=== PATIENT | female | born 1985 | race Caucasian/White ===

== ENCOUNTER → 2016-10-16 | Emergency (ER) | payer OTHER ==
[~2016-10-16] MED LIST: Fentanyl 100 MCG/2 ML VIAL ONE; Ondansetron HCl/PF 4 MG/2 ML Vial ONE
== END ==
LOC: BURERS 02:01
DX: O99.353 Diseases of the nervous system complicating pregnancy, third trimester (principal); G43.909 Migraine, unspecified, not intractable, without status migrainosus; O99.343 Other mental disorders complicating pregnancy, third trimester; F41.9 Anxiety disorder, unspecified
CPT/HCPCS: 96361; 96374; 96375; J2405; J3010

== ENCOUNTER 2016-11-11 16:34 | Emergency (ER) | payer OTHER ==
[~2016-11-11 16:34] MED LIST changes: -Fentanyl 100 MCG/2 ML VIAL ONE; +Iopamidol 370 76% 100 ML VIAL ONE; -Ondansetron HCl/PF 4 MG/2 ML Vial ONE
[2016-11-11 16:59] LABS: #Basophils 0.1 thou/uL (0.0-0.2); #Eosinphils 0.2 thou/uL (0.0-0.7); #Lymphocytes 1.9 thou/uL (1.20-3.40); #Monocytes 0.6 thou/uL (0.11-0.59); #Neutrophils 5.7 thou/uL (1.40-6.50); %Basophils 1.3 % (0.0-1.0); %Eosinophils 2.4 % (0.0-10.0); %Lymphocytes 22.5 % (21.0-51.0); %Monocytes 6.8 % (0.0-10.0); Hemoglobin 11.8 g/dL (12.0-16.0); Mean Corpuscular HGB CONC 32.3 g/dL (32.0-36.0); Mean Corpuscular Hemoglobin 27.4 pg (27.0-31.0); Mean Corpuscular Volume 85.1 fl (81.0-99.0); Mean Platelet Volume 9.1 fL (7.4-10.4); Platelet Count 230 thou/uL (130-400); RBC Distribution Width 12.1 % (11.5-14.5); Red Blood Cell (RBC) Count 4.28 mill/uL (4.20-5.40); White Blood Cell (WBC) Count 8.5 thou/uL (4.8-10.8)
[2016-11-11 17:14] LABS: ALT (SGPT) 10 U/L (8-55); AST (SGOT) 12 U/L (5-34); Albumin 3.9 g/dL (3.5-5.0); Alkaline Phosphatase 107 U/L (40-150); Anion Gap 13 mmol/L (10-20); BUN (Urea Nitrogen) 10 mg/dL (7.0-18.7); Bilirubin, Total 0.4 mg/dL (0.2-1.2); Calc. Creatinine Clearance 0 mL/min (70-130); Calcium 8.9 mg/dL (7.8-10.44); Carbon Dioxide 27 mmol/L (22-29); Chloride 105 mmol/L (98-107); Estimated GFR-MDRD 75; Globulin 3.2 g/dL (2.4-3.5); Glucose 96 mg/dL (70-105); Potassium 4.2 mmol/L (3.5-5.1); Protein, Total 7.1 g/dL (6.0-8.3); Sodium 141 mmol/L (136-145)
[2016-11-11 17:21] LABS: Bilirubin Negative (Negative); Blood, Urine Negative (Negative); Clarity Clear (Clear); Glucose, Urine (Dipstick) Negative (Negative); Leukocyte Trace (Negative); Nitrite Negative (Negative); Protein, Urine (Dipstick) Negative (Neg-Trace); Specific Gravity, Urine 1.015 (1.005-1.030); Urobilinogen 0.2 mg/dL (0.2-1.0)
[2016-11-11 17:29] LABS: Bacteria/HPF None Seen HPF (None Seen); Crystals/HPF None Seen HPF (Negative); Hyaline Casts/LPF NONE SEEN LPF (0-3 Hyaline); Other Casts/LPF None Seen LPF (0-3 Hyaline); Oval Fat Bodies/HPF None Seen HPF (None Seen); RBC/HPF None Seen HPF (0-3); Renal Epithelial None Seen HPF (0-3); Sperm/HPF None Seen HPF (None Seen); Squamous Epithelial None Seen HPF (0-3); Transitional Epithelial NONE SEEN HPF (0-3); Trichomonas/HPF None Seen HPF (None Seen); WBC/HPF 0-3 HPF (0-3); Yeast-All Forms None Seen HPF (None Seen)
[2016-11-11] MEDS ORDERED: Amoxicillin/Potassium Clav 875 MG TAB ONE (19:42)
--- NOTE | 2016-11-12 07:31 | CT ---
PRELIMINARY REPORT/[facility]/EMERGENCY AFTER HOURS PROCEDURE: EXAM: CT Abdomen and Pelvis With Intravenous Contrast CLINICAL HISTORY: 31 years old, female; Signs and symptoms; Fever; Prior surgery; Surgery date: <1 month; Surgery type : C section; Additional info: on october 26, 2016. Fever. Not , denies trouble with incision site. 101 temp today/ er/ no prev. TECHNIQUE: Axial computed tomography images of the abdomen and pelvis with intravenous contrast. COMPARISON: No relevant prior studies available. FINDINGS: Lower thorax: No acute findings. ABDOMEN: Liver: The liver is mildly enlarged. Gallbladder and bile ducts: Unremarkable. No calcified stones. No ductal dilation. Pancreas: Unremarkable. No mass. No ductal dilation. Spleen: Unremarkable. No splenomegaly. Adrenals: Unremarkable. No mass. Kidneys and ureters: Unremarkable. No solid mass. No hydronephrosis. Stomach and bowel: Liquefied stool contents are noted within the ascending colon, without associated colonic wall thickening or pericolonic fat stranding. No obstruction. Appendix: No findings to suggest acute appendicitis. PELVIS: Bladder: Unremarkable. No mass. Reproductive: There is mild stranding of the anterior pelvic fat, which could represent residual pos toperative changes related to the patient's recent section. The uterus is mildly prominent in size, compatible with the patient's recent state. The endometrial stripe is mildly prominent, which is not well evaluated by CT. No gas is identified within the endometrium. The surrounding myometrium is noted to be heterogeneous, with a well defined low attenuation areas. ABDOMEN and PELVIS: Intraperitoneal space: Trace pelvic free fluid is present. Bones/joints: No acute fracture. No dislocation. Soft tissues: A tiny fat filled periumbilical hernia is noted. Vasculature: Unremarkable. No abdominal aortic aneurysm. Lymph nodes: Unremarkable. No enlarged lymph nodes. IMPRESSION: 1. Mild stranding of the anterior pelvic fat may represent residual postoperative changes related to the patient's recent section. 2. Prominent endometrial stripe, not well evaluated by CT. Heterogeneity of the adjacent myometrium. No evidence of uterine or endometrial gas. Endometritis is possible, but cannot be confirmed or exc luded on the basis of this examination. 3. Mild hepatomegaly. Thank you for allowing us to participate in the care of your patient. Dictated and Authenticated by: Buddy Harvey MD 11/11/2016 6:58 PM Central Time ([place] \T\ [place]) FINAL REPORT CT ABDOMEN AND PELVIS WITH CONTRAST: Date: 11/11/[address] of the abdomen and pelvis was performed in this patient with fevers. There was a history o f a done about 2 weeks ago. Axial slices were acquired after giving IV contrast. No oral c ontrast was given by request. FINDINGS: The lungs are clear except for some minimal basilar atelectasis posteriorly. The liver is generous i n size, but internally appears normal. Spleen is upper normal in size, measuring just under 14.0 cm in length. The pancreas and gallbladder were unremarkable. The kidneys and adrenal glands appear nor mal. The aorta is normal in caliber. There is a moderate amount of fecal material in bowel, but there is no bowel distention, bowel wall thickening, or pericolonic stranding. No free air or free fluid was seen. CT of the pelvis shows the uterus to be mildly prominent in size, consistent with being recently pos tpartum. The endometrium seems somewhat prominent in thickness and there is some lucency in the myom etrium, particularly anterior to the endometrium. This could be referable to the recent , b ut hematoma or fluid collection in the uterus is not excluded. Ultrasound would be much more sensiti ve at assessing this. Some slight stranding in the fat anterior to the uterus is probably related to the recent surgery. There are no adnexal masses or free fluid seen. IMPRESSION: 1. Prominent thickness of the endometrial stripe, which may have fluid within it. There is also inh omogeneity of the myometrium with some more focal low density areas. Endometritis would be in the di fferential. A pelvic ultrasound should be considered to better investigate the uterus. 2. Mildly prominent hepatic and splenic size. 3. Mild constipation. REPORT IN AGREEMENT WITH PRELIMINARY REPORT BY OLGA LIDIA. POS: HOME
== END 2016-11-11 19:45 | disposition home or self-care (01) ==
LOC: BURERS 16:34
DX: O99.89 Other specified diseases and conditions complicating pregnancy, childbirth and the puerperium (principal); R10.2 Pelvic and perineal pain; M06.9 Rheumatoid arthritis, unspecified; O99.355 Diseases of the nervous system complicating the puerperium; G43.909 Migraine, unspecified, not intractable, without status migrainosus
CPT/HCPCS: 74177; 80053; 81003; 81015; 85025

== ENCOUNTER 2016-11-15 16:49 | Emergency (ER) | payer OTHER ==
[2016-11-15 17:20] LABS: #Basophils 0.1 thou/uL (0.0-0.2); #Eosinphils 0.2 thou/uL (0.0-0.7); #Monocytes 0.5 thou/uL (0.11-0.59); #Neutrophils 2.3 thou/uL (1.40-6.50); %Basophils 1.2 % (0.0-1.0); %Eosinophils 3.3 % (0.0-10.0); %Lymphocytes 39.7 % (21.0-51.0); %Monocytes 9.9 % (0.0-10.0); %Neutrophils 45.9 % (42.0-75.0); Hemoglobin 12.5 g/dL (12.0-16.0); Mean Corpuscular HGB CONC 32.4 g/dL (32.0-36.0); Mean Corpuscular Hemoglobin 27.4 pg (27.0-31.0); Mean Corpuscular Volume 84.5 fl (81.0-99.0); Mean Platelet Volume 8.5 fL (7.4-10.4); Platelet Count 229 thou/uL (130-400); RBC Distribution Width 12.5 % (11.5-14.5); Red Blood Cell (RBC) Count 4.56 mill/uL (4.20-5.40); White Blood Cell (WBC) Count 5.1 thou/uL (4.8-10.8)
[2016-11-15] MEDS ORDERED: Sodium Chloride 0.9% 100 ML ONE (17:35)
[2016-11-15] MEDS ORDERED: Ketorolac Tromethamine 30 MG/ML VIAL ONE (17:35)
[2016-11-15] MEDS ORDERED: metroNIDAZOLE 500 MG/100 ML BAG ONE (17:35)
[2016-11-15] MEDS ORDERED: Piperacillin/Tazobactam 3.375 GM VIAL ONE (17:35)
[2016-11-15 17:37] LABS: ALT (SGPT) 17 U/L (8-55); AST (SGOT) 19 U/L (5-34); Alkaline Phosphatase 109 U/L (40-150); Anion Gap 16 mmol/L (10-20); BUN (Urea Nitrogen) 7 mg/dL (7.0-18.7); Bilirubin, Total 0.4 mg/dL (0.2-1.2); Calc. Creatinine Clearance 0 mL/min (70-130); Calcium 9.1 mg/dL (7.8-10.44); Carbon Dioxide 24 mmol/L (22-29); Chloride 106 mmol/L (98-107); Estimated GFR-MDRD 73; Globulin 3.7 g/dL (2.4-3.5); Glucose 85 mg/dL (70-105); Potassium 3.9 mmol/L (3.5-5.1); Protein, Total 7.7 g/dL (6.0-8.3); Sodium 142 mmol/L (136-145)
[2016-11-15 17:40] LABS: Bilirubin Negative (Negative); Blood, Urine Negative (Negative); Clarity Clear (Clear); Glucose, Urine (Dipstick) Negative (Negative); Leukocyte Small (Negative); Nitrite Negative (Negative); Protein, Urine (Dipstick) Negative (Neg-Trace)
[2016-11-15 17:47] LABS: Bacteria/HPF None Seen HPF (None Seen); Other Microscopic Description C&S SET UP; RBC/HPF None Seen HPF (0-3); Squamous Epithelial 0-3 HPF (0-3); WBC/HPF 0-3 HPF (0-3)
== END 2016-11-15 18:25 | disposition home or self-care (01) ==
LOC: BURERS 16:49
DX: O86.12 Endometritis following delivery (principal); O99.89 Other specified diseases and conditions complicating pregnancy, childbirth and the puerperium; M06.9 Rheumatoid arthritis, unspecified
CPT/HCPCS: 36415; 80053; 81003; 81015; 83605; 85025; 87040; 87070; 87086; 87205; 87480; 87491; 87510; 87591; 87660; 96365; 96375; J1885; J2543; J7050

== ENCOUNTER 2016-11-18 20:25 | Emergency (ER) | payer OTHER ==
[2016-11-18] MEDS ORDERED: Ketorolac Tromethamine 30 MG/ML VIAL ONE (20:47)
[2016-11-18 21:10] LABS: #Basophils 0.1 thou/uL (0.0-0.2); #Eosinphils 0.2 thou/uL (0.0-0.7); #Lymphocytes 2.4 thou/uL (1.20-3.40); #Monocytes 0.5 thou/uL (0.11-0.59); #Neutrophils 3.7 thou/uL (1.40-6.50); %Basophils 1.7 % (0.0-1.0); %Lymphocytes 34.9 % (21.0-51.0); %Monocytes 6.9 % (0.0-10.0); %Neutrophils 53.5 % (42.0-75.0); Hemoglobin 11.6 g/dL (12.0-16.0); Mean Corpuscular HGB CONC 32.9 g/dL (32.0-36.0); Mean Corpuscular Hemoglobin 27.5 pg (27.0-31.0); Mean Corpuscular Volume 83.7 fl (81.0-99.0); Mean Platelet Volume 8.1 fL (7.4-10.4); Platelet Count 226 thou/uL (130-400); RBC Distribution Width 12.3 % (11.5-14.5); Red Blood Cell (RBC) Count 4.23 mill/uL (4.20-5.40)
[2016-11-18 21:20] LABS: Anion Gap 15 mmol/L (10-20); BUN (Urea Nitrogen) 8 mg/dL (7.0-18.7); Calc. Creatinine Clearance 0 mL/min (70-130); Calcium 8.9 mg/dL (7.8-10.44); Carbon Dioxide 25 mmol/L (22-29); Chloride 108 mmol/L (98-107); Estimated GFR-MDRD 74; Glucose 86 mg/dL (70-105); Potassium 3.8 mmol/L (3.5-5.1); Sodium 144 mmol/L (136-145)
--- NOTE | 2016-11-18 21:57 | CT ---
CT OF THE ABDOMEN AND PELVIS WITH CONTRAST LIMITED CT OF THE LUMBAR SPINE WITH CONTRAST 11/18/16 HISTORY: Fall landing on her abdomen with abdominal pain and back pain. TECHNIQUE: 1. Multiple contiguous axial images were obtained in a CT of the abdomen and pelvis with contra st. Coronal reformats were performed. 2. Limited CT of the lumbosacral spine was performed. Sagittal and coronal reformats were creat ed based off images obtained in the abdominal and pelvic CT. FINDINGS: CT ABDOMEN/PELVIS: The liver, gallbladder, kidneys, adrenal glands, and pancreas are unremarkable. The spleen is enlarg ed measuring 14.5 cm in length without focal abnormality. The uterus is enlarged and there is fluid within the endometrial canal. There may be a trace amount of free fluid in the pelvis. No free air or stranding changes are seen in the abdomen or pelvis. The large and small bowel are unremarkable. The appendix is normal. No abdominal or pelvic lymphadenopa thy are seen. There is soft tissue stranding in the lower abdominal wall. The visualized inferior thorax and osseo us structures are unremarkable. LIMITED CT OF THE LUMBOSACRAL SPINE: The vertebral bodies and intervertebral discs demonstrate normal height and alignment without fractu re or subluxation. No degenerative changes are seen. IMPRESSION: 1. No evidence of acute intra-abdominal/pelvic abnormality. 2. Enlarged uterus with fluid in the endometrial canal. This is nonspecific. Correlate with his tory of pap smear and correlate with urine test. 3. Splenomegaly. 4. No evidence of acute osseous abnormality of the lumbosacral spine. POS: [facility]
== END 2016-11-18 21:59 | disposition home or self-care (01) ==
LOC: BURERS 20:25
DX: O9A.23 Injury, poisoning and certain other consequences of external causes complicating the puerperium (principal); S80.02XA Contusion of left knee, initial encounter; O99.89 Other specified diseases and conditions complicating pregnancy, childbirth and the puerperium; R10.31 Right lower quadrant pain; R10.32 Left lower quadrant pain; M06.9 Rheumatoid arthritis, unspecified; O99.355 Diseases of the nervous system complicating the puerperium; G43.909 Migraine, unspecified, not intractable, without status migrainosus; W19.XXXA Unspecified fall, initial encounter
CPT/HCPCS: 74177; 80048; 85025; 96374; J1885

== ENCOUNTER 2016-11-27 10:50 | Outpatient (CLI) | payer OTHER ==
[2016-11-27 17:16] LABS: Creatinine, Urine 68.24 mg/dL (47-110); Protein, Urine Random Quant Less than 10 mg/dL
== END 2016-11-27 10:51 | disposition home or self-care (01) ==
LOC: BURLAB 10:50
PROVIDERS: ATTEND Student in an Organized Health Care Education/Training Program
DX: Z39.2 Encounter for routine postpartum follow-up (principal); R60.9 Edema, unspecified; Z87.59 Personal history of other complications of pregnancy, childbirth and the puerperium
CPT/HCPCS: 36415; 82570; 83880; 84156

== ENCOUNTER 2017-05-28 17:35 | Emergency (ER) | payer BC, OTHER, SELFPAY ==
[2017-05-28 18:34] LABS: #Basophils 0.1 thou/uL (0.0-0.2); #Eosinphils 0.1 thou/uL (0.0-0.7); #Lymphocytes 2.7 thou/uL (1.20-3.40); #Monocytes 0.5 thou/uL (0.11-0.59); %Basophils 1.6 % (0.0-1.0); %Lymphocytes 35.6 % (21.0-51.0); %Neutrophils 53.9 % (42.0-75.0); Hemoglobin 13.5 g/dL (12.0-16.0); Mean Corpuscular HGB CONC 32.5 g/dL (32.0-36.0); Mean Corpuscular Volume 89.3 fl (81.0-99.0); Mean Platelet Volume 11.2 fL (7.4-10.4); Platelet Count 148 thou/uL (130-400); RBC Distribution Width 12.6 % (11.5-14.5); Red Blood Cell (RBC) Count 4.63 mill/uL (4.20-5.40); White Blood Cell (WBC) Count 7.5 thou/uL (4.8-10.8)
[2017-05-28 18:52] LABS: ALT (SGPT) 10 U/L (8-55); AST (SGOT) 14 U/L (5-34); Albumin 4.4 g/dL (3.5-5.0); Alkaline Phosphatase 55 U/L (40-150); Anion Gap 15 mmol/L (10-20); BUN (Urea Nitrogen) 12 mg/dL (7.0-18.7); Bilirubin, Total 0.3 mg/dL (0.2-1.2); Calc. Creatinine Clearance 0 mL/min (70-130); Calcium 9.6 mg/dL (7.8-10.44); Carbon Dioxide 25 mmol/L (22-29); Chloride 105 mmol/L (98-107); Estimated GFR-MDRD 81; Globulin 3.2 g/dL (2.4-3.5); Glucose 65 mg/dL (70-105); Potassium 3.7 mmol/L (3.5-5.1); Protein, Total 7.6 g/dL (6.0-8.3); Sodium 141 mmol/L (136-145); Uric Acid 2.7 mg/dL (2.6-6.0)
[2017-05-28 18:53] LABS: BHCG - Serum Negative (NEGATIVE); Pregs Control Background? CLEAR/WHITE (CLR/WHITE); Pregs Control Bar Appear? YES (CONTROL BAR)
== END 2017-05-28 19:17 | disposition home or self-care (01) ==
LOC: BURERS 17:35
DX: B86 Scabies (principal); M06.9 Rheumatoid arthritis, unspecified; G43.909 Migraine, unspecified, not intractable, without status migrainosus; F41.9 Anxiety disorder, unspecified; F17.210 Nicotine dependence, cigarettes, uncomplicated; Z79.899 Other long term (current) drug therapy
CPT/HCPCS: 80053; 84550; 84703; 85025; 99283

== ENCOUNTER 2019-02-27 07:18 | Emergency (ER) | payer OTHER | END 2019-02-27 07:36 | disposition home or self-care (01) | LOC: BURERS 07:18 | DX: K04.7 Periapical abscess without sinus (principal); K02.9 Dental caries, unspecified; F41.9 Anxiety disorder, unspecified; F17.210 Nicotine dependence, cigarettes, uncomplicated | CPT/HCPCS: 99282 ==

== ENCOUNTER 2019-04-05 16:37 | Emergency (ER) | payer OTHER | END 2019-04-05 17:00 | disposition home or self-care (01) | LOC: BURERS 16:37 | DX: J11.1 Influenza due to unidentified influenza virus with other respiratory manifestations (principal); F41.9 Anxiety disorder, unspecified; F17.210 Nicotine dependence, cigarettes, uncomplicated; G43.909 Migraine, unspecified, not intractable, without status migrainosus; M06.9 Rheumatoid arthritis, unspecified | CPT/HCPCS: 99283 ==

== ENCOUNTER 2020-03-09 08:28 | Emergency (ER) | payer OTHER, SELFPAY | END 2020-03-09 08:50 | disposition home or self-care (01) | LOC: BURERS 08:28 | DX: K02.9 Dental caries, unspecified (principal); M06.9 Rheumatoid arthritis, unspecified; G43.909 Migraine, unspecified, not intractable, without status migrainosus; F17.210 Nicotine dependence, cigarettes, uncomplicated; F41.9 Anxiety disorder, unspecified | CPT/HCPCS: 99281 ==

== ENCOUNTER 2021-02-17 15:15 | Emergency (ER) | payer SELFPAY | END 2021-02-17 15:45 | disposition home or self-care (01) | LOC: BURERS 15:15 | DX: R07.89 Other chest pain (principal); F17.210 Nicotine dependence, cigarettes, uncomplicated | CPT/HCPCS: 99284 ==

== ENCOUNTER 2021-05-02 20:21 | Emergency (ER) | payer SELFPAY ==
[2021-05-02] MEDS ORDERED: Prochlorperazine 10 MG/2 ML VIAL ONE (20:57)
[2021-05-02] MEDS ORDERED: diphenhydrAMINE 50 MG/ML VIAL ONE (20:57)
[2021-05-02 21:19] LABS: #Basophils 0.1 thou/uL (0.0-0.2); #Eosinphils 0.1 thou/uL (0.0-0.7); #Lymphocytes 1.9 thou/uL (1.20-3.40); #Monocytes 0.6 thou/uL (0.11-0.59); #Neutrophils 6.6 thou/uL (1.40-6.50); %Basophils 1.1 % (0.0-1.0); %Eosinophils 1.1 % (0.0-10.0); %Lymphocytes 20.7 % (21.0-51.0); %Monocytes 6.1 % (0.0-10.0); %Neutrophils 71.2 % (42.0-75.0); Hemoglobin 14.9 g/dL (12.0-16.0); Mean Corpuscular HGB CONC 33.6 g/dL (32.0-36.0); Mean Corpuscular Hemoglobin 30.1 pg (27.0-31.0); Mean Corpuscular Volume 89.5 fL (78.0-98.0); Mean Platelet Volume 9.4 fL (7.4-10.4); Platelet Count 191 thou/uL (130-400); RBC Distribution Width 11.7 % (11.5-14.5); Red Blood Cell (RBC) Count 4.94 mill/uL (4.20-5.40); White Blood Cell (WBC) Count 9.3 thou/uL (4.8-10.8)
[2021-05-02] MEDS ORDERED: Ondansetron PF 4 MG/2 ML Vial ONE (21:26)
[2021-05-02 21:31] LABS: ALT (SGPT) 21 U/L (8-55); AST (SGOT) 21 U/L (5-34); Albumin 4.8 g/dL (3.5-5.0); Alkaline Phosphatase 51 U/L (40-110); Anion Gap 17 mmol/L (10-20); BUN (Urea Nitrogen) 12 mg/dL (7.0-18.7); Bilirubin, Total 0.4 mg/dL (0.2-1.2); Calc. Creatinine Clearance 0 mL/min (70-130); Calcium 10.1 mg/dL (7.8-10.44); Carbon Dioxide 18 mmol/L (22-29); Chloride 110 mmol/L (98-107); Globulin 3.2 g/dL (2.4-3.5); Glucose 115 mg/dL (70-105); Potassium 3.2 mmol/L (3.5-5.1); Sodium 142 mmol/L (136-145)
[2021-05-02 21:36] LABS: Pregs Control Background? CLEAR/WHITE (CLR/WHITE); Pregs Control Bar Appear? YES (CONTROL BAR)
[2021-05-02 21:39] LABS: BHCG - Serum Negative (NEGATIVE)
[2021-05-02] MEDS ORDERED: Potassium Chloride 20 MEQ TAB ONE (22:18)
== END 2021-05-02 22:26 | disposition home or self-care (01) ==
LOC: BURERS 20:21
DX: R51.9 Headache, unspecified (principal); R11.2 Nausea with vomiting, unspecified; F17.210 Nicotine dependence, cigarettes, uncomplicated
CPT/HCPCS: 36415; 70450; 70496; 70498; 80053; 84703; 85025; 96374; 96375; J0780; J1200; J2405; Q9967

== ENCOUNTER 2021-10-05 10:51 | Emergency (ER) | payer SELFPAY ==
[2021-10-05] MEDS ORDERED: Ketorolac Tromethamine 30 MG/ML VIAL ONE (11:14)
[2021-10-05] MEDS ORDERED: Metoclopramide HCl 10 MG/2 ML VIAL ONE (11:14)
[2021-10-05 11:33] LABS: #Basophils 0.1 thou/uL (0.0-0.2); #Eosinphils 0.1 thou/uL (0.0-0.7); #Lymphocytes 2.1 thou/uL (1.20-3.40); #Monocytes 0.6 thou/uL (0.11-0.59); #Neutrophils 7.5 thou/uL (1.40-6.50); %Basophils 0.8 % (0.0-1.0); %Eosinophils 0.6 % (0.0-10.0); %Neutrophils 72.7 % (42.0-75.0); Hemoglobin 14.8 g/dL (12.0-16.0); Mean Corpuscular HGB CONC 34.6 g/dL (32.0-36.0); Mean Corpuscular Hemoglobin 31.1 pg (27.0-31.0); Mean Corpuscular Volume 89.8 fL (78.0-98.0); Mean Platelet Volume 9.9 fL (7.4-10.4); Platelet Count 170 thou/uL (130-400); RBC Distribution Width 10.7 % (11.5-14.5); Red Blood Cell (RBC) Count 4.76 mill/uL (4.20-5.40); White Blood Cell (WBC) Count 10.4 thou/uL (4.8-10.8)
[2021-10-05 11:38] LABS: ALT (SGPT) 17 U/L (8-55); AST (SGOT) 16 U/L (5-34); Albumin 4.5 g/dL (3.5-5.0); Alkaline Phosphatase 50 U/L (40-110); Anion Gap 16 mmol/L (10-20); BUN (Urea Nitrogen) 11 mg/dL (7.0-18.7); Bilirubin, Total 0.5 mg/dL (0.2-1.2); Calc. Creatinine Clearance 0 mL/min (70-130); Calcium 9.4 mg/dL (7.8-10.44); Carbon Dioxide 22 mmol/L (22-29); Chloride 106 mmol/L (98-107); Globulin 3.3 g/dL (2.4-3.5); Glucose 111 mg/dL (70-105); Potassium 3.4 mmol/L (3.5-5.1); Protein, Total 7.8 g/dL (6.0-8.3); Sodium 141 mmol/L (136-145)
== END 2021-10-05 12:20 | disposition home or self-care (01) ==
LOC: BURERS 10:51
DX: G43.909 Migraine, unspecified, not intractable, without status migrainosus (principal); F17.210 Nicotine dependence, cigarettes, uncomplicated
CPT/HCPCS: 80053; 85025; 96365; 96375; J1885; J2765

== ENCOUNTER 2022-01-20 17:53 | Emergency (ER) | payer MEDICAID, SELFPAY ==
[2022-01-20] MEDS ORDERED: HYDROcodone/Acetaminophen 10/325 mg Tablet ONE (18:10)
[2022-01-20] MEDS ORDERED: AMOXicillin 250 MG CAP ONE (18:10)
== END 2022-01-20 18:14 | disposition home or self-care (01) ==
LOC: BURERS 17:53
DX: F41.9 Anxiety disorder, unspecified (principal); G89.29 Other chronic pain; M54.9 Dorsalgia, unspecified; K02.9 Dental caries, unspecified; F17.210 Nicotine dependence, cigarettes, uncomplicated
CPT/HCPCS: 99283

== ENCOUNTER 2022-01-28 16:27 | Emergency (ER) | payer SELFPAY ==
[2022-01-28 17:03] LABS: Hemoglobin 12.8 g/dL (12.0-16.0); Mean Corpuscular HGB CONC 34.3 g/dL (32.0-36.0); Mean Corpuscular Volume 87.6 fL (78.0-98.0); Mean Platelet Volume 9.8 fL (7.4-10.4); Platelet Count 134 thou/uL (130-400); RBC Distribution Width 12.7 % (11.5-14.5); Red Blood Cell (RBC) Count 4.27 mill/uL (4.20-5.40); White Blood Cell (WBC) Count 5.3 thou/uL (4.8-10.8)
[2022-01-28 17:19] LABS: ALT (SGPT) 33 U/L (8-55); AST (SGOT) 27 U/L (5-34); Albumin 3.9 g/dL (3.5-5.0); Alkaline Phosphatase 70 U/L (40-110); Anion Gap 12 mmol/L (10-20); BUN (Urea Nitrogen) 9 mg/dL (7.0-18.7); Bilirubin, Total 0.3 mg/dL (0.2-1.2); Calc. Creatinine Clearance 0 mL/min (70-130); Calcium 9.2 mg/dL (7.8-10.44); Carbon Dioxide 23 mmol/L (22-29); Chloride 107 mmol/L (98-107); Estimated GFR 101; Globulin 2.7 g/dL (2.4-3.5); Glucose 79 mg/dL (70-105); Potassium 4.2 mmol/L (3.5-5.1); Protein, Total 6.6 g/dL (6.0-8.3); Sodium 138 mmol/L (136-145)
[2022-01-28 17:28] LABS: Bilirubin Negative (Negative); Blood, Urine Negative (Negative); Clarity Clear (Clear); Glucose, Urine (Dipstick) Negative (Negative); Ketone, Urine Trace mg/dL (Negative); Leukocyte Trace (Negative); Nitrite Negative (Negative); Protein, Urine (Dipstick) Negative (Neg-Trace); Urobilinogen 0.2 mg/dL (Less than 2); pH, Urine 7.5 (5.0-9.0)
[2022-01-28 17:30] LABS: Pregnancy Test - Urine (BHCG) Negative (Negative); Pregu Control Background? CLEAR/WHITE (CLR/WHITE); Pregu Control Bar Appear? YES (CONTROL BAR)
[2022-01-28 17:40] LABS: Band 6 % (5-11); Eosinophils 3 % (0-10); Lymphocytes 31 % (21-51); MDiff Complete? YES; Monocytes 5 % (0-10); Neutrophil 54 % (42-75); Platelet Morphology Comment Appears Adequate; RBC Morphology Normal
[2022-01-28 17:46] LABS: Bacteria/HPF Rare-Few HPF (None Seen); RBC/HPF None Seen HPF (0-3); WBC/HPF 0-3 HPF (0-3)
[2022-01-28] MEDS ORDERED: Ciprofloxacin 500 MG TAB ONE (19:00)
== END 2022-01-28 19:08 | disposition home or self-care (01) ==
LOC: BURERS 16:27
DX: K52.9 Noninfective gastroenteritis and colitis, unspecified (principal); F17.210 Nicotine dependence, cigarettes, uncomplicated
CPT/HCPCS: 74177; 80053; 81003; 81015; 81025; 85025; 86674

== ENCOUNTER 2024-03-30 14:34 | Emergency (ER) | payer MEDICAID, SELFPAY ==
[2024-03-30] MEDS ORDERED: Ketorolac Tromethamine 30 MG (1 mL) VIAL ONE (14:58)
[2024-03-30] MEDS ORDERED: Metoclopramide HCl 10 MG (2 mL) VIAL ONE (14:58)
[2024-03-30] MEDS ORDERED: diphenhydrAMINE 50 MG/ML VIAL ONE (14:58)
== END 2024-03-30 15:55 | disposition home or self-care (01) ==
LOC: BURERS 14:34
DX: G43.909 Migraine, unspecified, not intractable, without status migrainosus (principal); F17.210 Nicotine dependence, cigarettes, uncomplicated
CPT/HCPCS: 36416; 96365; 96375; J1200; J1885; J2765